=== PATIENT | male | born 1975 | race Caucasian/White ===

== ENCOUNTER 2017-01-09 11:35 | Emergency (ER) | payer OTHER ==
[2017-01-09 11:45] VITALS: BP 127/76; PULSE 73; RESP 16; TEMP 98.4; O2SAT 98
--- NOTE | 2017-01-09 12:15 | EDPHY ---
H & P Time Seen by Provider: 01/09/17 11:48 HPI/ROS: CHIEF COMPLAINT: Dental pain HISTORY OF PRESENT ILLNESS: 41-year-old male presents to the emergency department by private vehicle complaining of severe pain in the right upper 2nd molar. Patient has a history of a fractured to his from a few weeks ago. He saw his dentist in [place] and apparently the tooth is fractured all the way down to the root of the tooth. His dentist warned him that he is at great risk of infection although he thought that he would be okay over the next few weeks. He is staying in [place] in his sober living facility. He does not have a dentist urine [place] but should be here for the next few months. He denies chest pain or difficulty breathing. No other treatment at home. He was taking ibuprofen with some relief. ROS: Denies facial swelling, fevers or chills, dysphagia Past Medical/Surgical History: Substance abuse sober for several months Social History: Single from [place] Smoking Status: Never smoked Physical Exam: On examination the patient is afebrile in no apparent distress. No obvious facial swelling noted. His teeth are in good repair. Right upper 2nd molar reveals temporary filling. There is no gingival swelling noted. There is some swelling to the buccal mucosa. There is no submandibular swelling. Neck is supple without lymphadenopathy. Constitutional: Initial Vital Signs Temperature (C) 36.9 C 01/09/17 11:42 Heart Rate 73 01/09/17 11:42 Respiratory Rate 16 01/09/17 11:42 Blood Pressure 127/76 H 01/09/17 11:42 O2 Sat (%) 98 01/09/17 11:42 O2 Delivery Mode Room Air Allergies/Adverse Reactions: No Known Allergies Allergy (Unverified 01/09/17 11:41) Home Medications: Medication Instructions Recorded Neurontin 100 MG (*) 01/09/17 Penicillin V Potassium 500 mg PO TID #30 tablet 01/09/17 Wellbutrin Sr 01/09/17 traMADol [Ultram 50 mg (*)] 50 mg PO Q6 PRN #15 tab 01/09/17 traZODone 01/09/17 MDM/Departure - MDM ED Course/Re-evaluation: 41-year-old male presents with dental pain. Clinically I think this patient has a dental infection. There is no obvious abscess that requires incision and drainage in the emergency department. He will be treated with oral penicillin, and oral tramadol per his request. The patient has a history of previous substance abuse. He declined opiates. He was instructed to do warm salt water gargles. He was instructed to see a dentist as soon as possible, on Wednesday. Should return if he develops facial swelling, dysphagia, fever, or if he seems worse in any way. He was comfortable with this plan. - Depart Disposition: Home, Routine, Self-Care Clinical Impression: Pain, dental Condition: Good Instructions: Toothache (ED) Additional Instructions: Penicillin 3 times daily for 10 days to prevent any further infection. Warm salt water gargles as discussed. Tramadol for severe pain as directed. Ibuprofen 600 mg every 8 hours as needed for pain. Follow up with her dentist on Wednesday, as soon as possible. Prescriptions: Penicillin V Potassium 500 mg PO TID #30 tablet traMADol [Ultram 50 mg (*)] 50 mg PO Q6 PRN #15 tab PRN Reason: Pain, Severe Referrals: [facility] [Outside] - As per Instructions [facility] [Outside] - As per Instructions Dental [facility] [Outside] - As per Instructions Dental [facility] [Outside] - As per Instructions Dental [facility] [Outside] - As per Instructions
== END 2017-01-09 12:31 | disposition home or self-care (01) ==
DX: K08.89 Other specified disorders of teeth and supporting structures (principal)

== ENCOUNTER 2017-01-10 00:50 | Emergency (ER) | payer OTHER ==
[2017-01-10 00:57] VITALS: BP 142/94; PULSE 75; RESP 16; TEMP 97.9; O2SAT 97
--- NOTE | 2017-01-10 01:39 | EDPHY ---
H & P Stated Complaint: abcessed tooth, seen earlier, increased swelling, continued pain Time Seen by Provider: 01/10/17 01:15 HPI/ROS: Chief complaint: Dental pain HPI: 41-year-old male presenting with right upper dental pain producing yesterday morning and diagnosed with a tooth abscess. He has been taking Percocet and a his and penicillin. Patient states that he has noticed increasing swelling is concerned about his is presenting for re-evaluation. He has not have any difficulty swallowing. No sore throat. No difficulty breathing. ROS: 10 point Review of Systems is negative except as noted in the HPI. Past medical history: None Physical exam: General: Awake, alert, no acute distress Mouth: He has tenderness in the right upper 2nd premolar. There is mild generalized swelling but there is no fluctuance pointing or other findings suggestive of drainable abscess. His no mandibular or submandibular swelling. His oropharynx is unremarkable.. - Personal History Current Tetanus/Diphtheria Vaccine: Unsure - Medical/Surgical History Hx Asthma: No Hx Chronic Respiratory Disease: No Hx Diabetes: No Hx Cardiac Disease: No Hx Renal Disease: No Hx Cirrhosis: No Hx Alcoholism: No Hx HIV/AIDS: No Hx Splenectomy or Spleen Trauma: No Other PMH: Denies - Social History Smoking Status: Never smoked Constitutional: Initial Vital Signs Temperature (C) 36.6 C 01/10/17 00:51 Heart Rate 75 01/10/17 00:51 Respiratory Rate 16 01/10/17 00:51 Blood Pressure 142/94 H 01/10/17 00:51 O2 Sat (%) 97 01/10/17 00:51 Allergies/Adverse Reactions: No Known Allergies Allergy (Unverified 01/09/17 11:41) Home Medications: Medication Instructions Recorded Neurontin 100 MG (*) 01/09/17 Penicillin V Potassium 500 mg PO TID #30 tablet 01/09/17 Wellbutrin Sr 01/09/17 traMADol [Ultram 50 mg (*)] 50 mg PO Q6 PRN #15 tab 01/09/17 traZODone 01/09/17 Medical Decision Making ED Course/Re-evaluation: Patient presenting with symptoms of dental abscess. There is no drainable collection at this time. He is taking his antibiotics. Pain is adequately controlled with the Percocet. He is declining a dental block at this time. He will continue his course of medications and follow up with his dentist tomorrow. Departure - Departure Disposition: Home, Routine, Self-Care Clinical Impression: Dental abscess Condition: Good Instructions: Dental Abscess (ED) Additional Instructions: follow-up with dentist on Wednesday. Referrals: [facility] [Other] - As per Instructions
== END 2017-01-10 01:45 | disposition home or self-care (01) ==
DX: K04.7 Periapical abscess without sinus (principal)